=== PATIENT | female | born 1955 | race Caucasian/White ===

== ENCOUNTER → 2018-02-15 19:31 | Outpatient (CLI) | payer MEDICARE ==
[2014-09-21 05:57] VITALS: BMI 21.0
[~2018-02-15 19:31] MED LIST: ALBUTEROL2.5 MG/3 M INH; AMBIEN5 MG PO; BENADRYL25 MG PO; CARAFATE1 G PO; CELEXA20 MG PO; CHLORASEPTIC177 ML TOPICAL; COUMADIN2.5 MG PO; COUMADIN5 MG PO; COUMADIN7.5 MG PO; DULCOLAX5 MG PO; EFFEXOR XR75 MG PO; HYDROCODONE-APA1 TAB PO; MIRALAX17 GM PO; NICODERM C1 PATCH .1 TRANSDERM; NYSTATIN1 PWD TOPICAL; PEPCID20 MG PO; PULMICORT0.5 MG/21 NEB; TUMS500 MG PO; TYLENOL650 MG/20. PO; ULTRAM50 MG PO; ZANAFLEX4 MG PO; ZOFRAN ODT4 MG/UDTAB PO
== END | disposition home or self-care (01) ==
LOC: D.MAMMO 11:30
DX: R92.8 Other abnormal and inconclusive findings on diagnostic imaging of breast (principal)